=== PATIENT | male | born 1930 | race Caucasian/White ===

== ENCOUNTER 2018-06-15 13:55 | Emergency (ER) | payer MEDICARE, BC ==
[~2018-06-15] VITALS: Ht 190.5 cm; Wt 83.9 kg
[2018-06-15 14:17] VITALS: BP 189/84
--- NOTE | 2018-06-15 14:41 | PHYS DOC ---
Past Medical History Past Medical History: UTI Additional Past Medical Histor: bph, Past Surgical History: Other Additional Past Surgical Histo: aaa repair Alcohol Use: None Drug Use: None Adult General Chief Complaint Chief Complaint: BLOOD IN URINE [facility] HPI Patient is a 88 year old male who presents with lower abdominal pain, urethral pain with urination, and more than usual urinary retention since this morning. Patient states he cannot fully empty his bladder that he does have a history of enlarged prostate of which he takes Flomax for. Patient states she's had this problem before and had to have a leg bag placed. Patient states he cannot get hold of his primary care doctor. Patient rates his pain 8 out of 10 but states when he urinates is very painful. Patient denies nausea, vomiting, chest pain, shortness of air, diarrhea, constipation, fever. Review of Systems Review of Systems Constitutional: Denies fever or chills [] Eyes: Denies change in visual acuity, redness, or eye pain [] HENT: Denies nasal congestion or sore throat [] Respiratory: Denies cough or shortness of breath [] Cardiovascular: No additional information not addressed in HPI [] GI: Denies abdominal pain, nausea, vomiting, bloody stools or diarrhea [] : Denies dysuria or hematuria [] Musculoskeletal: Denies back pain or joint pain [] Integument: Denies rash or skin lesions [] Neurologic: Denies headache, focal weakness or sensory changes [] Endocrine: Denies polyuria or polydipsia [] All other systems were reviewed and found to be within normal limits, except as documented in this note. Current Medications Current Medications Current Medications Medications (Trade) Dose Ordered Sig/[facility] Start Time Stop Time Status Last Admin Dose Admin Ceftriaxone Sodium (Rocephin) 1 gm 1X ONCE 06/15/18 18:00 06/15/18 18:01 DC Allergies Allergies Allergies Coded Allergies Type Severity Reaction Last Updated Verified No Known Drug Allergies 05/17/15 No Physical Exam Physical Exam Constitutional: Well developed, well nourished, no acute distress, non-toxic appearance. [] HENT: Normocephalic, atraumatic, bilateral external ears normal, oropharynx moist, no oral exudates, nose normal. [] Eyes: PERRLA, EOMI, conjunctiva normal, no discharge. [] Neck: Normal range of motion, no tenderness, supple, no stridor. [] Cardiovascular:Heart rate regular rhythm, no murmur [] Lungs & Thorax: Bilateral upper breath sounds inspiratory wheezes to auscultation, lower lobes diminished. [] Abdomen: Bowel sounds normal, soft, no tenderness, no masses, no pulsatile masses. [] Skin: Warm, dry, no erythema, no rash. [] Back: No tenderness, no CVA tenderness. [] Extremities: No tenderness, no cyanosis, no clubbing, ROM intact, no edema. [] Neurologic: Alert and oriented X 3, normal motor function, normal sensory function, no focal deficits noted. [] Psychologic: Affect normal, judgement normal, mood normal. [] Current Patient Data Vital Signs Vital Signs Date Time Temp Pulse Resp B/P (MAP) Pulse Ox O2 Delivery O2 Flow Rate FiO2 06/15/18 14:17 97.7 62 20 189/84 (119) 97 Room Air 97.7 Lab Values Laboratory Tests Test 06/15/18 15:00 06/15/18 15:35 Urine Color Brown Urine Clarity Turbid Urine pH Urine Specific [place] Urine Protein mg/dL (NEG-TRACE) Urine Glucose (UA) mg/dL (NEG) Urine Ketones (Stick) mg/dL (NEG) Urine Blood (NEG) Urine Nitrite (NEG) Urine Bilirubin (NEG) Urine Urobilinogen Dipstick mg/dL (0.2 mg/dL) Urine Leukocyte Esterase (NEG) Urine RBC Tntc /HPF (0-2) Urine WBC Tntc /HPF (0-4) Urine Bacteria Many /HPF (0-FEW) White Blood Count 6.8 x10^3/uL (4.0-11.0) Red Blood Count 4.26 x10^6/uL (4.30-5.70) L Hemoglobin 13.7 g/dL (13.0-17.5) Hematocrit 42.4 % (39.0-53.0) Mean Corpuscular Volume 100 fL (79-100) Mean Corpuscular Hemoglobin 32 pg (25-35) Mean Corpuscular Hemoglobin Concent 32 g/dL (31-37) Red Cell Distribution Width 14.7 % (11.5-14.5) H Platelet Count 174 x10^3/uL (140-400) Neutrophils (%) (Auto) 72 % (31-73) Lymphocytes (%) (Auto) 17 % (24-48) L Monocytes (%) (Auto) 9 % (0-9) Eosinophils (%) (Auto) 2 % (0-3) Basophils (%) (Auto) 0 % (0-3) Neutrophils # (Auto) 4.9 x10^3uL (1.8-7.7) Lymphocytes # (Auto) 1.2 x10^3/uL (1.0-4.8) Monocytes # (Auto) 0.6 x10^3/uL (0.0-1.1) Eosinophils # (Auto) 0.1 x10^3/uL (0.0-0.7) Basophils # (Auto) 0.0 x10^3/uL (0.0-0.2) Sodium Level 143 mmol/L (136-145) Potassium Level 4.0 mmol/L (3.5-5.1) Chloride Level 105 mmol/L (98-107) Carbon Dioxide Level 33 mmol/L (21-32) H Anion Gap 5 (6-14) L Blood Urea Nitrogen 17 mg/dL (8-26) Creatinine 1.0 mg/dL (0.7-1.3) Estimated GFR (Cockcroft-Gault) 70.8 BUN/Creatinine Ratio 17 (6-20) Glucose Level 98 mg/dL (70-99) Calcium Level 8.8 mg/dL (8.5-10.1) Total Bilirubin 0.7 mg/dL (0.2-1.0) Aspartate Amino Transferase (AST) 19 U/L (15-37) Alanine Aminotransferase (ALT) 22 U/L (16-63) Alkaline Phosphatase 76 U/L (46-116) Total Protein 7.8 g/dL (6.4-8.2) Albumin 3.4 g/dL (3.4-5.0) Albumin/Globulin Ratio 0.8 (1.0-1.7) L Laboratory Tests 06/15/18 15:35 Laboratory Tests 06/15/18 15:35 EKG EKG [] Radiology/Procedures Radiology/Procedures [] Impressions: [facility] [address] [place], [place] [id number] IMAGING REPORT Signed PATIENT: MEL WILLINGHAM ACCOUNT: [id number] : 1930 LOCATION: ER AGE: 88 SEX: M EXAM STATUS: REG ER ORD. PHYSICIAN: ADAM THOMAS APRN REASON: urinary retention, lower abd pain, bloody urine PROCEDURE: CT ABDOMEN PELVIS WO CONTRAST CT study of the abdomen and pelvis without contrast Clinical indications: Urinary retention. Lower abdominal pain. Bloody urine. TECHNIQUE: Noncontrast helical CT scanning of abdomen and pelvis was performed. Without contrast, the sensitivity to detect organ pathology and GI tract pathology is decreased. PQRS compliance Statement One or more of the following individualized dose reduction techniques were utilized for this study: 1. Automated exposure control 2. Adjustment of the mA and/or kV according to patient size 3. Use of iterative reconstruction technique FINDINGS: The liver and spleen and pancreas are homogeneous in appearance on this noncontrast study. There are some small radiodensities within the gallbladder which could represent sludge more small gallstones. No extrahepatic biliary ductal dilatation is seen. No adrenal mass is evident. There is moderate right-sided hydronephrosis and hydroureter. No stone is evident. The right ureter is dilated down to the UVJ. There is wall thickening of the urinary bladder diffusely. The prostate gland is enlarged with more nodularity on the right side. Prostate gland measures 8.2 cm transversely. Roberts catheter is seen within the lumen of the urinary bladder. No hydronephrosis or hydroureter is seen within the left side. Endoluminal aortic iliac stent graft is seen. The [place] abdominal aorta just superior to the graft measures 3.8 cm in greatest caliber. The [place] abdominal aorta around the graft appears decompressed. No bulky abdominal or pelvic lymphadenopathy is evident. There are no CT findings of appendicitis. The terminal ileum is unremarkable. No obstructive bowel pattern is evident. No free intraperitoneal air or free fluid or mesenteric edema is seen. No lung base consolidation is evident. 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 IMPRESSION: Moderate right-sided hydronephrosis and hydroureter all way down to the UVJ. No ureteral stone is evident. This may be secondary to obstruction from soft tissue inflammation or neoplasia at the UVJ. There is significant circumferential wall thickening of the urinary bladder which could be secondary to cystitis or chronic muscle hypertrophy secondary to chronic bladder neck obstruction. The prostate gland is significantly enlarged. There is more nodularity on the right side of the prostate gland. Prostate malignancy as a cause for obstruction is a possibility. Mild biliary sludge versus small gallstones. 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 Electronically signed by: Toño Lind MD (06/15/2018 3:58 PM) [facility] DICTATED and SIGNED BY: TOÑO LIND MD DATE: 06/15/18 1558 Course & Med Decision Making Course & Med Decision Making Patient is a 88 year old male who presents with lower abdominal pain, urethral pain with urination, and more than usual urinary retention since this morning. Patient states he cannot fully empty his bladder that he does have a history of enlarged prostate of which he takes Flomax for. Patient states he's had this problem before and had to have a leg bag placed. Patient states he cannot get hold of his primary care doctor. Patient rates his pain 8 out of 10 but states when he urinates is very painful. Patient denies nausea, vomiting, chest pain, shortness of air, diarrhea, constipation, fever. Alert and oriented. Speaks in full clear sentences. Patient is hard of hearing. Lungs have respiratory wheezes and lower lung lobes are diminished. Patient is a smoker. Patient denies any cough or shortness of air or recent illness. Patient is ambulatory with a steady gait. Skin is pink warm and dry. Mucous membranes are moist. No extremity edema. Abdomen is soft and nontender. Patient is asking for a catheter with a leg bag. Patient is asked to try to give a urine specimen the ED and he is unable to. Patient states he does feel uncomfortable like there is fullness in his bladder. Patient will be bladder scan. Leg bag roberts placed with 9ml urine return. Moderate amount of bloody urine is drained and the bag is irrigated with a small clot. Urine is infected. CT ABD PELV shows Moderate right-sided hydronephrosis and hydroureter all way down to the UVJ. No ureteral stone is evident. This may be secondary to obstruction from soft tissue inflammation or neoplasia at the UVJ. There is significant circumferential wall thickening of the urinary bladder which could be secondary to cystitis or chronic muscle hypertrophy secondary to chronic bladder neck obstruction. The prostate gland is significantly enlarged. There is more nodularity on the right side of the prostate gland. Prostate malignancy as a cause for obstruction is a possibility. Mild biliary sludge versus small gallstones. 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 I have told the patient I would like him to stay inpatient and have IV antibiotics and have urology see him. Patient refuses to be admitted and states he will take antibiotics and go home on Roberts leg back and follow up with Urology. I have spoken to Dr Powell with urology who states that the patient can go home on a catheter and Cipro. Patient to call office in 2 days for scheduling of follow up and to change antibiotics if needed. Patient is also given 1gm of Rocephin in the ED. Dragon Disclaimer Dragon Disclaimer This electronic medical record was generated, in whole or in part, using a voice recognition dictation system. Departure Departure Impression: Primary Impression: Cystitis Additional Impression: Urinary tract infection Disposition: HOME, SELF-CARE Condition: STABLE Referrals: NO PCP (PCP) CLAUDY HUSTON MD Patient Instructions: Urinary Tract Infection Additional Instructions: FOLLOW UP WITH UROLOGY SOON POSSIBLE. TAKE ANTIBIOTICS PRESCRIBED. Scripts Ciprofloxacin Hcl (CIPRO) 500 Mg Tablet 1 TAB PO BID for 10 Days, #20 TAB Prov: ADAM THOMAS APRN 06/15/18 Problem Qualifiers Additional Impression: Urinary tract infection Urinary tract infection type: acute cystitis Hematuria presence: with hematuria Qualified Codes: N30.01 - Acute cystitis with hematuria ADAM THOMAS APRN Jun 15, 2018 14:41
[2018-06-15 15:11] LABS: CLARITY,URINE TURBID
[2018-06-15 15:21] LABS: COLOR,URINE BROWN; RBC,URINE TNTC /HPF (0-2)
[2018-06-15 15:23] LABS: BACTERIA,URINE MANY /HPF (0-FEW); WBC,URINE TNTC /HPF (0-4)
[2018-06-15 15:47] LABS: BASO % 0 % (0-3); EOS # 0.1 x10^3/uL (0.0-0.7); EOS % 2 % (0-3); HEMATOCRIT 42.4 % (39.0-53.0); HEMOGLOBIN 13.7 g/dL (13.0-17.5); LYMPH # 1.2 x10^3/uL (1.0-4.8); LYMPH % 17 % (24-48); MEAN CORPUSCULAR HEMOGLOBIN 32 pg (25-35); MEAN CORPUSCULAR HGB CONC 32 g/dL (31-37); MEAN CORPUSCULAR VOLUME 100 fL (79-100); MONO # 0.6 x10^3/uL (0.0-1.1); MONO % 9 % (0-9); NEUT # 4.9 x10^3uL (1.8-7.7); NEUT % 72 % (31-73); PLATELET COUNT 174 x10^3/uL (140-400); RED BLOOD COUNT 4.26 x10^6/uL (4.30-5.70); RED CELL DISTRIBUTION WIDTH 14.7 % (11.5-14.5); WHITE BLOOD COUNT 6.8 x10^3/uL (4.0-11.0)
[2018-06-15 16:00] LABS: CALCIUM 8.8 mg/dL (8.5-10.1); GFR 70.8
--- NOTE | 2018-06-15 16:01 | RAD ---
CT study of the abdomen and pelvis without contrast Clinical indications: Urinary retention. Lower abdominal pain. Bloody urine. TECHNIQUE: Noncontrast helical CT scanning of abdomen and pelvis was performed. Without contrast, the sensitivity to detect organ pathology and GI tract pathology is decreased. PQRS compliance Statement One or more of the following individualized dose reduction techniques were utilized for this study: 1. Automated exposure control 2. Adjustment of the mA and/or kV according to patient size 3. Use of iterative reconstruction technique FINDINGS: The liver and spleen and pancreas are homogeneous in appearance on this noncontrast study. There are some small radiodensities within the gallbladder which could represent sludge more small gallstones. No extrahepatic biliary ductal dilatation is seen. No adrenal mass is evident. There is moderate right-sided hydronephrosis and hydroureter. No stone is evident. The right ureter is dilated down to the UVJ. There is wall thickening of the urinary bladder diffusely. The prostate gland is enlarged with more nodularity on the right side. Prostate gland measures 8.2 cm transversely. Simpson catheter is seen within the lumen of the urinary bladder. No hydronephrosis or hydroureter is seen within the left side. Endoluminal aortic iliac stent graft is seen. [place] abdominal aorta just superior to the graft measures 3.8 cm in greatest caliber. The [place] abdominal aorta around the graft appears decompressed. No bulky abdominal or pelvic lymphadenopathy is evident. There are no CT findings of appendicitis. The terminal ileum is unremarkable. No obstructive bowel pattern is evident. No free intraperitoneal air or free fluid or mesenteric edema is seen. No lung base consolidation is evident. 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 IMPRESSION: Moderate right-sided hydronephrosis and hydroureter all way down to the UVJ. No ureteral stone is evident. This may be secondary to obstruction from soft tissue inflammation or neoplasia at the UVJ. There is significant circumferential wall thickening of the urinary bladder which could be secondary to cystitis or chronic muscle hypertrophy secondary to chronic bladder neck obstruction. The prostate gland is significantly enlarged. There is more nodularity on the right side of the prostate gland. Prostate malignancy as a cause for obstruction is a possibility. Mild biliary sludge versus small gallstones. 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 Electronically signed by: Dontae Lind MD (06/15/2018 3:58 PM) [facility]
[2018-06-15 16:07] LABS: ALBUMIN 3.4 g/dL (3.4-5.0); ALBUMIN/GLOBULIN RATIO 0.8 (1.0-1.7); TOTAL BILIRUBIN 0.7 mg/dL (0.2-1.0); TOTAL PROTEIN 7.8 g/dL (6.4-8.2)
[2018-06-15] MEDS ORDERED: cefTRIAXone IV Push 1 GM VIAL. IVP ONE (18:00)
[2018-06-15] MEDS ORDERED: CIPR500T94 PO (18:23)
== END 2018-06-15 18:40 | disposition home or self-care (01) ==
LOC: ER 13:55
DX: N30.01 Acute cystitis with hematuria (principal); M47.816 Spondylosis without myelopathy or radiculopathy, lumbar region
CPT/HCPCS: 36415; 51702; 74176; 80053; 81001; 85025; 87086; 99284; J0696

== ENCOUNTER 2018-08-16 19:15 | Inpatient (IN) | payer MEDICARE, BC ==
[~2018-08-16] VITALS: Ht 190.5 cm; Wt 73.5 kg
[~2018-08-16 19:15] MED LIST: CIPR500T94 PO
--- NOTE | 2018-08-16 20:24 | PHYS DOC ---
Past Medical History Past Medical History: UTI Additional Past Medical Histor: bph, (CLAUDY FOSTER APRN) Past Surgical History: Other Additional Past Surgical Histo: aaa repair (CLAUDY FOSTER APRN) Alcohol Use: None Drug Use: None (CLAUDY FOSTER APRN) Adult General Chief Complaint Chief Complaint: BLOOD IN URINE [facility] HPI Patient is a 88 year old [male] who presents with [inability to urinate with blood clots in his urine today. Patient reports he has had prostate problems for many years has been many natural medications in the past had been on 1 that was very successful but had a formulation change and no longer is available. Reports he has taken Flomax in the past most recently as 2-3 weeks ago from his primary care reports he had never had any success with that and he stopped taking it. Reports he has been offered surgery many times and he refuses any prostate surgery he is aware he has an inflamed prostate. He is very knowled geable in prostate issues and has done a lot of research and has tried many different natural remedies with occasional success finding products. Reports he just feels like he needs to urinate because he has not been able to all day. Reports he has had a catheter placed to go home in the past but has not had this for quite a period (CLAUDY FOSTER APRN) Review of Systems Review of Systems Constitutional: Denies fever or chills [] Eyes: Denies change in visual acuity, redness, or eye pain [] HENT: Denies nasal congestion or sore throat [] Respiratory: Denies cough or shortness of breath any different than his normal shortness of breath [] Cardiovascular: No additional information not addressed in HPI [] GI: Denies abdominal pain, nausea, vomiting, bloody stools or diarrhea [] : Reports some hematuria also reports he has been unable to urinate today[] Musculoskeletal: Denies back pain or joint pain [] Integument: Denies rash or skin lesions [] Neurologic: Denies headache, focal weakness or sensory changes [] Endocrine: Denies polyuria or polydipsia [] All other systems were reviewed and found to be within normal limits, except as documented in this note. (CLAUDY FOSTER APRN) Current Medications Current Medications Current Medications Medications (Trade) Dose Ordered Sig/[facility] Start Time Stop Time Status Last Admin Dose Admin Albuterol/ Ipratropium (Duoneb) 3 ml 1X ONCE 08/16/18 21:45 08/16/18 21:46 DC 08/16/18 21:48 3 ML (RAMAN PALOMARES DO) Allergies Allergies Allergies Coded Allergies Type Severity Reaction Last Updated Verified No Known Drug Allergies 05/17/15 No (RAMAN PALOMARES DO) Physical Exam Physical Exam Constitutional: Well developed, well nourished, no acute distress, non-toxic appearance. [] HENT: Normocephalic, atraumatic, bilateral external ears normal, oropharynx moist, no oral exudates, nose normal. [] Eyes: PERRLA, EOMI, conjunctiva normal, no discharge. [] Neck: Normal range of motion, no tenderness, supple, no stridor. [] Cardiovascular:Heart rate regular rhythm, no murmur [] Lungs & Thorax: Bilateral breath sounds with faint wheezing. Patient speaking multiple sentences without noted air hunger. He is on nasal cannula at home all the time. [] Abdomen: Bowel sounds normal, soft, minimal suprapubic tenderness, no masses, no pulsatile masses. [] Skin: Warm, dry, no erythema, no rash. [] Back: No tenderness, no CVA tenderness. [] Extremities: No tenderness, no cyanosis, no clubbing, ROM intact, no edema. [] Neurologic: Alert and oriented X 3, normal motor function, normal sensory function, no focal deficits noted. [] . [] (CLAUDY FOSTER APRN) Current Patient Data Vital Signs Vital Signs Date Time Temp Pulse Resp B/P (MAP) Pulse Ox O2 Delivery O2 Flow Rate FiO2 08/16/18 23:00 72 18 145/72 (96) 94 Nasal Cannula 2.0 08/16/18 19:35 97.9 97.9 (RAMAN PALOMARES DO) Lab Values Laboratory Tests Test 08/16/18 19:30 08/16/18 20:56 White Blood Count 7.7 x10^3/uL (4.0-11.0) Red Blood Count 4.32 x10^6/uL (4.30-5.70) Hemoglobin 13.8 g/dL (13.0-17.5) Hematocrit 42.5 % (39.0-53.0) Mean Corpuscular Volume 98 fL (79-100) Mean Corpuscular Hemoglobin 32 pg (25-35) Mean Corpuscular Hemoglobin Concent 32 g/dL (31-37) Red Cell Distribution Width 14.4 % (11.5-14.5) Platelet Count 185 x10^3/uL (140-400) Neutrophils (%) (Auto) 68 % (31-73) Lymphocytes (%) (Auto) 22 % (24-48) L Monocytes (%) (Auto) 7 % (0-9) Eosinophils (%) (Auto) 3 % (0-3) Basophils (%) (Auto) 1 % (0-3) Neutrophils # (Auto) 5.2 x10^3uL (1.8-7.7) Lymphocytes # (Auto) 1.7 x10^3/uL (1.0-4.8) Monocytes # (Auto) 0.5 x10^3/uL (0.0-1.1) Eosinophils # (Auto) 0.2 x10^3/uL (0.0-0.7) Basophils # (Auto) 0.0 x10^3/uL (0.0-0.2) Prothrombin Time 13.3 SEC (11.7-14.0) Prothrombin Time INR 1.0 (0.8-1.1) PTT 32 SEC (24-38) Sodium Level 141 mmol/L (136-145) Potassium Level 3.9 mmol/L (3.5-5.1) Chloride Level 102 mmol/L (98-107) Carbon Dioxide Level 31 mmol/L (21-32) Anion Gap 8 (6-14) Blood Urea Nitrogen 23 mg/dL (8-26) Creatinine 1.2 mg/dL (0.7-1.3) Estimated GFR (Cockcroft-Gault) 57.4 Glucose Level 100 mg/dL (70-99) H Calcium Level 9.2 mg/dL (8.5-10.1) Urine Collection Type U cath Urine Color Red Urine Clarity Turbid Urine pH 6.0 Urine Specific [place] 1.020 Urine Protein 100 mg/dL (NEG-TRACE) Urine Glucose (UA) Negative mg/dL (NEG) Urine Ketones (Stick) Trace mg/dL (NEG) Urine Blood Large (NEG) Urine Nitrite Positive (NEG) Urine Bilirubin Moderate (NEG) Urine Urobilinogen Dipstick 1.0 mg/dL (0.2 mg/dL) Urine Leukocyte Esterase Large (NEG) Urine RBC Tntc /HPF (0-2) Urine WBC 20-40 /HPF (0-4) Urine Squamous Epithelial Cells Occ /LPF Urine Bacteria Many /HPF (0-FEW) Urine Mucus Mod /LPF Laboratory Tests 08/16/18 19:30 Laboratory Tests 08/16/18 19:30 (RAMAN PALOMARES DO) Lab Values Laboratory Tests Test 08/16/18 19:30 08/16/18 20:56 White Blood Count 7.7 x10^3/uL (4.0-11.0) Red Blood Count 4.32 x10^6/uL (4.30-5.70) Hemoglobin 13.8 g/dL (13.0-17.5) Hematocrit 42.5 % (39.0-53.0) Mean Corpuscular Volume 98 fL (79-100) Mean Corpuscular Hemoglobin 32 pg (25-35) Mean Corpuscular Hemoglobin Concent 32 g/dL (31-37) Red Cell Distribution Width 14.4 % (11.5-14.5) Platelet Count 185 x10^3/uL (140-400) Neutrophils (%) (Auto) 68 % (31-73) Lymphocytes (%) (Auto) 22 % (24-48) L Monocytes (%) (Auto) 7 % (0-9) Eosinophils (%) (Auto) 3 % (0-3) Basophils (%) (Auto) 1 % (0-3) Neutrophils # (Auto) 5.2 x10^3uL (1.8-7.7) Lymphocytes # (Auto) 1.7 x10^3/uL (1.0-4.8) Monocytes # (Auto) 0.5 x10^3/uL (0.0-1.1) Eosinophils # (Auto) 0.2 x10^3/uL (0.0-0.7) Basophils # (Auto) 0.0 x10^3/uL (0.0-0.2) Prothrombin Time 13.3 SEC (11.7-14.0) Prothrombin Time INR 1.0 (0.8-1.1) PTT 32 SEC (24-38) Sodium Level 141 mmol/L (136-145) Potassium Level 3.9 mmol/L (3.5-5.1) Chloride Level 102 mmol/L (98-107) Carbon Dioxide Level 31 mmol/L (21-32) Anion Gap 8 (6-14) Blood Urea Nitrogen 23 mg/dL (8-26) Creatinine 1.2 mg/dL (0.7-1.3) Estimated GFR (Cockcroft-Gault) 57.4 Glucose Level 100 mg/dL (70-99) H Calcium Level 9.2 mg/dL (8.5-10.1) Urine Collection Type U cath Urine Color Red Urine Clarity Turbid Urine pH 6.0 Urine Specific [place] 1.020 Urine Protein 100 mg/dL (NEG-TRACE) Urine Glucose (UA) Negative mg/dL (NEG) Urine Ketones (Stick) Trace mg/dL (NEG) Urine Blood Large (NEG) Urine Nitrite Positive (NEG) Urine Bilirubin Moderate (NEG) Urine Urobilinogen Dipstick 1.0 mg/dL (0.2 mg/dL) Urine Leukocyte Esterase Large (NEG) Urine RBC Tntc /HPF (0-2) Urine WBC 20-40 /HPF (0-4) Urine Squamous Epithelial Cells Occ /LPF Urine Bacteria Many /HPF (0-FEW) Urine Mucus Mod /LPF Laboratory Tests 08/16/18 19:30 Laboratory Tests 08/16/18 19:30 (CLAUDY FOSTER APRN) EKG EKG [] (CLAUDY FOSTER APRN) Radiology/Procedures Radiology/Procedures IMPRESSION: 1. Abdominal aortic aneurysm. 2. Some limitation from respiratory motion artifact. 3. Artifact versus small gallstones the gallbladder. 4. 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 5. Enlarged prostate. 6. Distended bladder with thickening of the bladder wall and mild inflammation surrounding the bladder, possible infection. [] (CLAUDY FOSTER APRN) Course & Med Decision Making Course & Med Decision Making Pertinent Labs and Imaging studies reviewed. (See chart for details) On catheter placement noted brownish urine catheter. Patient reports he has had a lot of relief of his discomfort does agree to inpatient monitoring tonight to evaluate his urinary retention and urinary symptoms. Will continue to get breathing treatments as noted. Patient states he feels fine staying tonight.[] (CLAUDY FOSTER APRN) Dragon Disclaimer Dragon Disclaimer This electronic medical record was generated, in whole or in part, using a voice recognition dictation system. (CLAUDY FOSTER APRN) Departure Departure Impression: Primary Impression: Hematuria Additional Impression: Urinary tract infection Disposition: ADMITTED INPATIENT Admitting Physician: Other (CLAUDY FOSTER APRN) Condition: GOOD Referrals: NO PCP (PCP) Attending Signature Attending Signature I have reviewed the PA/MANAGER HOME's note and plan of care. I was available for consultation as needed during the patient's visit in the emergency department. I agree with the clinical impression, plan, and disposition. (RAMAN PALOMARES DO) Problem Qualifiers CLAUDY FOSTER APRN August 16, 2018 20:24 RAMAN APLOMARES DO August 17, 2018 05:31
[2018-08-16 21:04] LABS: BILIRUBIN,URINE MODERATE (NEG); CLARITY,URINE TURBID; COLOR,URINE RED; NITRITE,URINE POSITIVE (NEG); PROTEIN,URINE 100 mg/dL (NEG-TRACE)
[2018-08-16 21:08] LABS: RBC,URINE TNTC /HPF (0-2)
[2018-08-16 21:10] LABS: BACTERIA,URINE MANY /HPF (0-FEW); SQUAMOUS EPITHELIAL CELL,UR OCC /LPF; WBC,URINE 20-40 /HPF (0-4)
[2018-08-16] MEDS ORDERED: IPRATRPIUM/ALBUTEROL 0.5/2.5MG 3 ML NEBU. NEB ONE (21:45)
[2018-08-16 22:09] LABS: BASO % 1 % (0-3); EOS # 0.2 x10^3/uL (0.0-0.7); EOS % 3 % (0-3); HEMATOCRIT 42.5 % (39.0-53.0); HEMOGLOBIN 13.8 g/dL (13.0-17.5); LYMPH # 1.7 x10^3/uL (1.0-4.8); LYMPH % 22 % (24-48); MEAN CORPUSCULAR HEMOGLOBIN 32 pg (25-35); MEAN CORPUSCULAR HGB CONC 32 g/dL (31-37); MEAN CORPUSCULAR VOLUME 98 fL (79-100); MONO # 0.5 x10^3/uL (0.0-1.1); MONO % 7 % (0-9); NEUT # 5.2 x10^3uL (1.8-7.7); NEUT % 68 % (31-73); PLATELET COUNT 185 x10^3/uL (140-400); RED BLOOD COUNT 4.32 x10^6/uL (4.30-5.70); RED CELL DISTRIBUTION WIDTH 14.4 % (11.5-14.5); WHITE BLOOD COUNT 7.7 x10^3/uL (4.0-11.0)
[2018-08-16 22:16] LABS: CALCIUM 9.2 mg/dL (8.5-10.1); CREATININE 1.2 mg/dL (0.7-1.3); GFR 57.4; POTASSIUM 3.9 mmol/L (3.5-5.1)
[2018-08-16] MEDS ORDERED: cefTRIAXone IV Push 1 GM VIAL. IVP ONE (23:15)
[2018-08-16] MEDS ORDERED: IV NORMAL SALINE 1000ML BAG 1,000 ML IV ONE (23:15)
[2018-08-16 23:29] LABS: PROTHROMBIN TIME PATIENT 13.3 SEC (11.7-14.0)
--- NOTE | 2018-08-16 23:52 | RAD ---
CT abdomen and pelvis without contrast. HISTORY: Hematuria CT scan the abdomen pelvis was done without contrast. There is mild respiratory motion artifact. 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 There is mild scarring or atelectasis in the right lower lobe. Thoracic aorta is mildly dilated measuring 3.68 cm. A liver lesion is not identified. There is either artifact or small gallstones in the gallbladder in the posterior gallbladder. There are granulomatous calcifications in the spleen. Adrenal glands are normal. Patient's had a previous aortic aneurysm surgery. There is an aneurysm of the aorta above the previous surgery at the level the renal arteries and just below the renal arteries the aorta measures 3.7 x 3.9 cm. There is no renal mass or hydronephrosis. There is no bowel obstruction. There is a anterior abdominal wall hernia in the upper abdomen above the umbilicus. Appendix is normal. Prostate is enlarged. There is thickening of the bladder wall. Bladder is mildly distended. There is a bubble of air in the bladder possible infection or instrumentation. I do not see evidence of a diverticulitis or significant diverticulosis. 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 There is degenerative change in the lumbar spine without a fracture. IMPRESSION: 1. Abdominal aortic aneurysm. 2. Some limitation from respiratory motion artifact. 3. Artifact versus small gallstones the gallbladder. 4. 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 5. Enlarged prostate. 6. Distended bladder with thickening of the bladder wall and mild inflammation surrounding the bladder, possible infection. PQRS Compliance Statement: One or more of the following individualized dose reduction techniques were utilized for this examination: 1. Automated exposure control 2. Adjustment of the mA and/or kV according to patient size 3. Use of iterative reconstruction technique Electronically signed by: Ander Larson MD (08/16/2018 11:49 PM) [id number]
--- NOTE | 2018-08-17 00:20 | NUR ---
The patient, MEL WILLINGHAM, 88 y/o, M was admitted by HANANE GUO MD. Pt. arrived on unit by bed at 0020 from ED with 2L NC. Pt. was given written information regarding hospital policies and unit procedures. Pt.'s vital signs were stable. Assessment done at this time. Admission questions answered by pt. Call light within reach, bed low. Will continue to monitor.
[2018-08-17 01:00] VITALS: BP 152/49
[2018-08-17] MEDS ORDERED: ACETAMINOPHEN 325 MG TABLET. PO PRN (02:00)
--- NOTE | 2018-08-17 02:47 | NUR ---
Pt. arrived on unit with 20G coude catheter but pt. unhooked catheter from bag while he went to bathroom and catheter came out of pt. Pt. did not feel any pain and he stated "nurse probably forgot to blow the bubble up." This nurse inserted new 16F coude catheter. Addendum: 08/17/18 at 0308 by SUMAYA ELIAS RN Amended: Links added.
[2018-08-17 03:00] VITALS: BP 103/49
[2018-08-17 07:00] VITALS: BP 93/60
[2018-08-17] MEDS ORDERED: IPRATRPIUM/ALBUTEROL 0.5/2.5MG 3 ML NEBU. NEB SCH ×2 (08:00→16:00)
--- NOTE | 2018-08-17 08:59 | NUR ---
SW following for discharge planning. Discussed with RN, pt is from home with , very independent. RN advised no SW needs at this time. SW will continue to follow.
--- NOTE | 2018-08-17 09:31 | PDOC2 ---
MARCIALOUMOU Murray Milly VILLARREAL 08/17/18 0931: UROLOGY CONSULT Date of Consult Date of Consult DATE: 08/17/18 TIME: 09:26 Identification/Chief Complaint Chief Complaint Gross hematuria/urinary retention Source Source: Chart review, Patient History of Present Illness Reason for Visit: This pleasant 88 year old male presented through the ER last night for complaints of urinary retention and hematuria. He sees Dr. Castillo and had a cystoscopy a couple of months ago and is due to see him again in September. He manages his urinary retention with self cath and was trying to do this last night, when the blood started up. However, every time he inserted a I and O catheter, it clogged up with a blood clot and would not drain. This is when he decided to come into [facility]. They inserted an indwelling Roberts catheter and he thinks they got around 1000 ml out but he is not sure. He denies having any fever, or abd/flank pain during this incident. This morning his urine is clear and he denies any pain. He is supposed to cath four times per day but admittedly does not do this all the time, he only self caths when he "cannot urinate on my own." He would like to go home as soon as possible. Past Medical History Renal/: Benign prostatic enlarg. (Pt of Dr. Dubon) Current Medications Current Medications Current Medications Acetaminophen (Tylenol) 650 mg PRN Q6HRS PRN PO headache; Start 08/17/18 at 02:00 Albuterol/ Ipratropium (Duoneb) 3 ml 1X ONCE NEB Last administered on 08/16/18at 21:48; Start 08/16/18 at 21:45; Stop 08/16/18 at 21:46; Status DC Albuterol/ Ipratropium (Duoneb) 3 ml RTQID NEB ; Start 08/17/18 at 08:00 Ceftriaxone Sodium (Rocephin) 1 gm 1X ONCE IVP Last administered on 08/16/18at 23:38; Start 08/16/18 at 23:15; Stop 08/16/18 at 23:16; Status DC Sodium Chloride 1,000 ml @ 1,000 mls/hr 1X ONCE IV Last administered on 08/16/18at 23:38; Start 08/16/18 at 23:15; Stop 08/17/18 at 00:14; Status DC Allergies Allergies: Coded Allergies: No Known Drug Allergies (Unverified , 05/17/15) ROS Review Of Systems: CONSTITUTIONAL: No fever or chills EYES: No recent changes SKIN: No rash or itching CARDIOVASCULAR: No chest pain, syncope, palpitations, or edema RESPIRATORY: No SOB or cough GASTROINTESTINAL: No nausea, vomiting or abdominal pain NEUROLOGICAL: No headaches or weakness ENDOCRINE: No cold or heat intolerance GENITOURINARY: No urgency or frequency of urination/problems he had yesterday are resolved. MUSCULOSKELETAL: No back pain or joint pain LYMPHATICS: No enlarged lymph nodes PSYCHIATRIC: No anxiety or depression Physical Exam Physical Exam: General: Pleasant, no acute distress, well groomed Eyes: conjunctiva anicteric, eyes full range of motion ENT: moist oral mucosa, normal dentition Neck: Trachea midline, no masses Respiratory: unlabored breathing, not using accessory muscles, Abdomen: nontender, nondistended, no hepatosplenomegaly, no masses : normal phallus with Roberts in place draining clear yellow urine. Device in good working order. Skin: no rashes or skin lesions on visualized skin Psych: normal mood, affect. Alert and oriented x 3. Vitals VITALS Vital Signs Date Time Temp Pulse Resp B/P (MAP) Pulse Ox O2 Delivery O2 Flow Rate FiO2 08/17/18 07:20 Nasal Cannula 2.0 08/17/18 07:00 97.8 59 18 93/60 (71) 94 97.8 Labs Labs Laboratory Tests Test 08/16/18 19:30 08/16/18 20:56 White Blood Count 7.7 x10^3/uL (4.0-11.0) Red Blood Count 4.32 x10^6/uL (4.30-5.70) Hemoglobin 13.8 g/dL (13.0-17.5) Hematocrit 42.5 % (39.0-53.0) Mean Corpuscular Volume 98 fL (79-100) Mean Corpuscular Hemoglobin 32 pg (25-35) Mean Corpuscular Hemoglobin Concent 32 g/dL (31-37) Red Cell Distribution Width 14.4 % (11.5-14.5) Platelet Count 185 x10^3/uL (140-400) Neutrophils (%) (Auto) 68 % (31-73) Lymphocytes (%) (Auto) 22 % (24-48) Monocytes (%) (Auto) 7 % (0-9) Eosinophils (%) (Auto) 3 % (0-3) Basophils (%) (Auto) 1 % (0-3) Neutrophils # (Auto) 5.2 x10^3uL (1.8-7.7) Lymphocytes # (Auto) 1.7 x10^3/uL (1.0-4.8) Monocytes # (Auto) 0.5 x10^3/uL (0.0-1.1) Eosinophils # (Auto) 0.2 x10^3/uL (0.0-0.7) Basophils # (Auto) 0.0 x10^3/uL (0.0-0.2) Prothrombin Time 13.3 SEC (11.7-14.0) Prothromb Time International Ratio 1.0 (0.8-1.1) Activated Partial Thromboplast Time 32 SEC (24-38) Sodium Level 141 mmol/L (136-145) Potassium Level 3.9 mmol/L (3.5-5.1) Chloride Level 102 mmol/L (98-107) Carbon Dioxide Level 31 mmol/L (21-32) Anion Gap 8 (6-14) Blood Urea Nitrogen 23 mg/dL (8-26) Creatinine 1.2 mg/dL (0.7-1.3) Estimated GFR (Cockcroft-Gault) 57.4 Glucose Level 100 mg/dL (70-99) Calcium Level 9.2 mg/dL (8.5-10.1) Urine Collection Type U cath Urine Color Red Urine Clarity Turbid Urine pH 6.0 Urine Specific [place] 1.020 Urine Protein 100 mg/dL (NEG-TRACE) Urine Glucose (UA) Negative mg/dL (NEG) Urine Ketones (Stick) Trace mg/dL (NEG) Urine Blood Large (NEG) Urine Nitrite Positive (NEG) Urine Bilirubin Moderate (NEG) Urine Urobilinogen Dipstick 1.0 mg/dL (0.2 mg/dL) Urine Leukocyte Esterase Large (NEG) Urine RBC Tntc /HPF (0-2) Urine WBC 20-40 /HPF (0-4) Urine Squamous Epithelial Cells Occ /LPF Urine Bacteria Many /HPF (0-FEW) Urine Mucus Mod /LPF Laboratory Tests Test 08/16/18 19:30 08/16/18 20:56 White Blood Count 7.7 x10^3/uL (4.0-11.0) Red Blood Count 4.32 x10^6/uL (4.30-5.70) Hemoglobin 13.8 g/dL (13.0-17.5) Hematocrit 42.5 % (39.0-53.0) Mean Corpuscular Volume 98 fL (79-100) Mean Corpuscular Hemoglobin 32 pg (25-35) Mean Corpuscular Hemoglobin Concent 32 g/dL (31-37) Red Cell Distribution Width 14.4 % (11.5-14.5) Platelet Count 185 x10^3/uL (140-400) Neutrophils (%) (Auto) 68 % (31-73) Lymphocytes (%) (Auto) 22 % (24-48) Monocytes (%) (Auto) 7 % (0-9) Eosinophils (%) (Auto) 3 % (0-3) Basophils (%) (Auto) 1 % (0-3) Neutrophils # (Auto) 5.2 x10^3uL (1.8-7.7) Lymphocytes # (Auto) 1.7 x10^3/uL (1.0-4.8) Monocytes # (Auto) 0.5 x10^3/uL (0.0-1.1) Eosinophils # (Auto) 0.2 x10^3/uL (0.0-0.7) Basophils # (Auto) 0.0 x10^3/uL (0.0-0.2) Prothrombin Time 13.3 SEC (11.7-14.0) Prothromb Time International Ratio 1.0 (0.8-1.1) Activated Partial Thromboplast Time 32 SEC (24-38) Sodium Level 141 mmol/L (136-145) Potassium Level 3.9 mmol/L (3.5-5.1) Chloride Level 102 mmol/L (98-107) Carbon Dioxide Level 31 mmol/L (21-32) Anion Gap 8 (6-14) Blood Urea Nitrogen 23 mg/dL (8-26) Creatinine 1.2 mg/dL (0.7-1.3) Estimated GFR (Cockcroft-Gault) 57.4 Glucose Level 100 mg/dL (70-99) Calcium Level 9.2 mg/dL (8.5-10.1) Urine Collection Type U cath Urine Color Red Urine Clarity Turbid Urine pH 6.0 Urine Specific [place] 1.020 Urine Protein 100 mg/dL (NEG-TRACE) Urine Glucose (UA) Negative mg/dL (NEG) Urine Ketones (Stick) Trace mg/dL (NEG) Urine Blood Large (NEG) Urine Nitrite Positive (NEG) Urine Bilirubin Moderate (NEG) Urine Urobilinogen Dipstick 1.0 mg/dL (0.2 mg/dL) Urine Leukocyte Esterase Large (NEG) Urine RBC Tntc /HPF (0-2) Urine WBC 20-40 /HPF (0-4) Urine Squamous Epithelial Cells Occ /LPF Urine Bacteria Many /HPF (0-FEW) Urine Mucus Mod /LPF Images Images CT ABD/PELVIS: 1. Abdominal aortic aneurysm. 2. Some limitation from respiratory motion artifact. 3. Artifact versus small gallstones the gallbladder. 4. 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 5. Enlarged prostate. 6. Distended bladder with thickening of the bladder wall and mild inflammation surrounding the bladder, possible infection. Assessment/Plan Assessment/Plan Per our urochart/outpatient system, he is supposed to cath QID. He has been offered surgery for urinary retention in the past but he has declined on multiple occasions. Nursing to continue to maintain Roberts catheter for now. Hematuria appears to have resolved. Dr. Castillo to round on patient later today MONROE CASTILLO MD 08/17/18 5687: UROLOGY CONSULT Assessment/Plan Assessment/Plan I have seen Jerrell and discussed his problem of Urinary Retention w him. He said he would like to go home w roberts and dc it later. This is ok w me. He is likely to need to self cath and knows that. OUMOU CEJA APRN August 17, 2018 09:31 MONROE CASTILLO MD August 17, 2018 13:38
--- NOTE | 2018-08-17 09:59 | PDOC1 ---
History and Physical Date of Admission Date of Admission DATE: 08/17/18 TIME: 09:58 Identification/Chief Complaint Chief Complaint seen in er, 88 year old [male] who presents with [inability to urinate with blood clots in his urine today. Patient reports he has had prostate problems for many years has been many natural medications in the past had been on 1 that was very successful but had a formulation change and no longer is available. Reports he has taken Flomax in the past most recently as 2-3 weeks ago from his primary care reports he had never had any success with that and he stopped taking it. Reports he has been offered surgery many times and he refuses any prostate surgery he is aware he has an inflamed prostate. Past Medical History Past Medical History Past Medical History Past Medical History: UTI Additional Past Medical Histor: bph, Past Surgical History: Other Additional Past Surgical Histo: aaa repair Alcohol Use: None Drug Use: None family hx htn Pulmonary: COPD Renal/: Benign prostatic enlarg. (Pt of Dr. Dubon) Family History Family History: Hypertension Social History Smoke: <1 pack per day ALCOHOL: occassional Drugs: None Current Problem List Problem List Problems Medical Problems: (1) Urinary tract infection Status: Acute Current Medications Current Medications Current Medications Albuterol/ Ipratropium (Duoneb) 3 ml 1X ONCE NEB Last administered on 08/16/18at 21:48; Start 08/16/18 at 21:45; Stop 08/16/18 at 21:46; Status DC Ceftriaxone Sodium (Rocephin) 1 gm 1X ONCE IVP Last administered on 08/16/18at 23:38; Start 08/16/18 at 23:15; Stop 08/16/18 at 23:16; Status DC Sodium Chloride 1,000 ml @ 1,000 mls/hr 1X ONCE IV Last administered on 08/16/18at 23:38; Start 08/16/18 at 23:15; Stop 08/17/18 at 00:14; Status DC Acetaminophen (Tylenol) 650 mg PRN Q6HRS PRN PO headache; Start 08/17/18 at 02:00 Albuterol/ Ipratropium (Duoneb) 3 ml RTQID NEB ; Start 08/17/18 at 08:00 Active Scripts Active Cipro (Ciprofloxacin Hcl) 500 Mg Tablet 1 Tab PO BID 10 Days Reported No Known Medications Prior To Admisstion (Info) Each 1 Each MC 1X No Known Medications Prior To Admisstion (Info) Each 1 Each Allergies Allergies: Coded Allergies: No Known Drug Allergies (Unverified , 05/17/15) ROS Review of System Review of Systems Review of Systems Constitutional: Denies fever or chills [] Eyes: Denies change in visual acuity, redness, or eye pain [] HENT: Denies nasal congestion or sore throat [] Respiratory: Denies cough or shortness of breath any different than his normal shortness of breath [] Cardiovascular: No additional information not addressed in HPI [] GI: Denies abdominal pain, nausea, vomiting, bloody stools or diarrhea [] : Reports some hematuria also reports he has been unable to urinate today[] Musculoskeletal: Denies back pain or joint pain [] Integument: Denies rash or skin lesions [] Neurologic: Denies headache, focal weakness or sensory changes [] Endocrine: Denies polyuria or polydipsia [] 14 pt systems were reviewed and found to be within normal limits, except as documented Respiratory: No: Cough, Hemoptysis, Orthopnea, Pleuritic Pain, Shortness of breath, SOB with excertion, Sputum Changes, Stridor, Tachypnea, Wheezing, Other Cardiovascular: No Chest Pain, No Palpitations, No Orthopnea, No Paroxysmal Noc. Dyspnea, No Edema, No Lt Headedness, No Other Gastrointestinal: No Nausea, No Vomiting, No Abdominal Pain, No Diarrhea, No Constipation, No Melena, No Hematochezia, No Other Skin: No Dry Skin, No Eczema, No Hair Changes, No Lumps, No Mole Changes, No Mottling, No Nail Changes, No Pruritus, No Rash, No Skin Lesion Changes, No Other, No Acne Physical Exam Physical Exam Physical Exam Constitutional: Well developed, well nourished, no acute distress, non-toxic appearance. [] HENT: Normocephalic, atraumatic, bilateral external ears normal, oropharynx kevin st, no oral exudates, nose normal. [] Eyes: PERRLA, EOMI, conjunctiva normal, no discharge. [] Neck: Normal range of motion, no tenderness, supple, no stridor. [] Cardiovascular:Heart rate regular rhythm, no murmur [] Lungs & Thorax: Bilateral breath sounds with faint wheezing. Patient speaking multiple sentences without noted air hunger. He is on nasal cannula at home all the time. [] Abdomen: Bowel sounds normal, soft, minimal suprapubic tenderness, no masses, no pulsatile masses. [] Skin: Warm, dry, no erythema, no rash. [] Back: No tenderness, no CVA tenderness. [] Extremities: No tenderness, no cyanosis, no clubbing, ROM intact, no edema. [] Neurologic: Alert and oriented X 3, normal motor function, normal sensory function, no focal deficits noted. [] General: Alert, Oriented X3, Cooperative, No acute distress HEENT: Atraumatic, EOMI, Mucous membr. moist/pink Lungs: Normal air movement Abdomen: Soft Rectal Exam: not examined Extremities: No cyanosis Neuro: Normal speech, Cranial nerves 3-12 NL Psych/Mental Status: Mental status NL, Mood NL Vitals Vitals Vital Signs Date Time Temp Pulse Resp B/P (MAP) Pulse Ox O2 Delivery O2 Flow Rate FiO2 08/17/18 07:20 Nasal Cannula 2.0 08/17/18 07:00 97.8 59 18 93/60 (71) 94 97.8 Labs Labs Laboratory Tests Test 08/16/18 19:30 08/16/18 20:56 White Blood Count 7.7 x10^3/uL (4.0-11.0) Red Blood Count 4.32 x10^6/uL (4.30-5.70) Hemoglobin 13.8 g/dL (13.0-17.5) Hematocrit 42.5 % (39.0-53.0) Mean Corpuscular Volume 98 fL (79-100) Mean Corpuscular Hemoglobin 32 pg (25-35) Mean Corpuscular Hemoglobin Concent 32 g/dL (31-37) Red Cell Distribution Width 14.4 % (11.5-14.5) Platelet Count 185 x10^3/uL (140-400) Neutrophils (%) (Auto) 68 % (31-73) Lymphocytes (%) (Auto) 22 % (24-48) Monocytes (%) (Auto) 7 % (0-9) Eosinophils (%) (Auto) 3 % (0-3) Basophils (%) (Auto) 1 % (0-3) Neutrophils # (Auto) 5.2 x10^3uL (1.8-7.7) Lymphocytes # (Auto) 1.7 x10^3/uL (1.0-4.8) Monocytes # (Auto) 0.5 x10^3/uL (0.0-1.1) Eosinophils # (Auto) 0.2 x10^3/uL (0.0-0.7) Basophils # (Auto) 0.0 x10^3/uL (0.0-0.2) Prothrombin Time 13.3 SEC (11.7-14.0) Prothromb Time International Ratio 1.0 (0.8-1.1) Activated Partial Thromboplast Time 32 SEC (24-38) Sodium Level 141 mmol/L (136-145) Potassium Level 3.9 mmol/L (3.5-5.1) Chloride Level 102 mmol/L (98-107) Carbon Dioxide Level 31 mmol/L (21-32) Anion Gap 8 (6-14) Blood Urea Nitrogen 23 mg/dL (8-26) Creatinine 1.2 mg/dL (0.7-1.3) Estimated GFR (Cockcroft-Gault) 57.4 Glucose Level 100 mg/dL (70-99) Calcium Level 9.2 mg/dL (8.5-10.1) Urine Collection Type U cath Urine Color Red Urine Clarity Turbid Urine pH 6.0 Urine Specific [place] 1.020 Urine Protein 100 mg/dL (NEG-TRACE) Urine Glucose (UA) Negative mg/dL (NEG) Urine Ketones (Stick) Trace mg/dL (NEG) Urine Blood Large (NEG) Urine Nitrite Positive (NEG) Urine Bilirubin Moderate (NEG) Urine Urobilinogen Dipstick 1.0 mg/dL (0.2 mg/dL) Urine Leukocyte Esterase Large (NEG) Urine RBC Tntc /HPF (0-2) Urine WBC 20-40 /HPF (0-4) Urine Squamous Epithelial Cells Occ /LPF Urine Bacteria Many /HPF (0-FEW) Urine Mucus Mod /LPF Laboratory Tests Test 08/16/18 19:30 08/16/18 20:56 White Blood Count 7.7 x10^3/uL (4.0-11.0) Red Blood Count 4.32 x10^6/uL (4.30-5.70) Hemoglobin 13.8 g/dL (13.0-17.5) Hematocrit 42.5 % (39.0-53.0) Mean Corpuscular Volume 98 fL (79-100) Mean Corpuscular Hemoglobin 32 pg (25-35) Mean Corpuscular Hemoglobin Concent 32 g/dL (31-37) Red Cell Distribution Width 14.4 % (11.5-14.5) Platelet Count 185 x10^3/uL (140-400) Neutrophils (%) (Auto) 68 % (31-73) Lymphocytes (%) (Auto) 22 % (24-48) Monocytes (%) (Auto) 7 % (0-9) Eosinophils (%) (Auto) 3 % (0-3) Basophils (%) (Auto) 1 % (0-3) Neutrophils # (Auto) 5.2 x10^3uL (1.8-7.7) Lymphocytes # (Auto) 1.7 x10^3/uL (1.0-4.8) Monocytes # (Auto) 0.5 x10^3/uL (0.0-1.1) Eosinophils # (Auto) 0.2 x10^3/uL (0.0-0.7) Basophils # (Auto) 0.0 x10^3/uL (0.0-0.2) Prothrombin Time 13.3 SEC (11.7-14.0) Prothromb Time International Ratio 1.0 (0.8-1.1) Activated Partial Thromboplast Time 32 SEC (24-38) Sodium Level 141 mmol/L (136-145) Potassium Level 3.9 mmol/L (3.5-5.1) Chloride Level 102 mmol/L (98-107) Carbon Dioxide Level 31 mmol/L (21-32) Anion Gap 8 (6-14) Blood Urea Nitrogen 23 mg/dL (8-26) Creatinine 1.2 mg/dL (0.7-1.3) Estimated GFR (Cockcroft-Gault) 57.4 Glucose Level 100 mg/dL (70-99) Calcium Level 9.2 mg/dL (8.5-10.1) Urine Collection Type U cath Urine Color Red Urine Clarity Turbid Urine pH 6.0 Urine Specific [place] 1.020 Urine Protein 100 mg/dL (NEG-TRACE) Urine Glucose (UA) Negative mg/dL (NEG) Urine Ketones (Stick) Trace mg/dL (NEG) Urine Blood Large (NEG) Urine Nitrite Positive (NEG) Urine Bilirubin Moderate (NEG) Urine Urobilinogen Dipstick 1.0 mg/dL (0.2 mg/dL) Urine Leukocyte Esterase Large (NEG) Urine RBC Tntc /HPF (0-2) Urine WBC 20-40 /HPF (0-4) Urine Squamous Epithelial Cells Occ /LPF Urine Bacteria Many /HPF (0-FEW) Urine Mucus Mod /LPF Images Images PROCEDURE: CT ABDOMEN PELVIS WO CONTRAST CT abdomen and pelvis without contrast. HISTORY: Hematuria CT scan the abdomen pelvis was done without contrast. There is mild respiratory motion artifact. 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 There is mild scarring or atelectasis in the right lower lobe. Thoracic aorta is mildly dilated measuring 3.68 cm. A liver lesion is not identified. There is either artifact or small gallstones in the gallbladder in the posterior gallbladder. There are granulomatous calcifications in the spleen. Adrenal glands are normal. Patient's had a previous aortic aneurysm surgery. There is an aneurysm of the aorta above the previous surgery at the level the renal arteries and just below the renal arteries the aorta measures 3.7 x 3.9 cm. There is no renal mass or hydronephrosis. There is no bowel obstruction. There is a anterior abdominal wall hernia in the upper abdomen above the umbilicus. Appendix is normal. Prostate is enlarged. There is thickening of the bladder wall. Bladder is mildly distended. There is a bubble of air in the bladder possible infection or instrumentation. I do not see evidence of a diverticulitis or significant diverticulosis. 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 There is degenerative change in the lumbar spine without a fracture. IMPRESSION: 1. Abdominal aortic aneurysm. 2. Some limitation from respiratory motion artifact. 3. Artifact versus small gallstones the gallbladder. 4. 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 5. Enlarged prostate. 6. Distended bladder with thickening of the bladder wall and mild inflammation surrounding the bladder, possible infection. VTE Prophylaxis Ordered VTE Prophylaxis Devices: Yes VTE Pharmacological Prophylaxi: Yes Assessment/Plan Assessment/Plan Assessment 1. Distended bladder with thickening of the bladder wall and mild inflammation surrounding the bladder, possible infection. 2 . Abdominal aortic aneurysm. aneurysm of the aorta above the previous surgery at the level the renal arteries and just below the renal arteries the aorta measures 3.7 x 3.9 cm. 3. Some limitation from respiratory motion artifact. 4. Artifact versus small gallstones the gallbladder. 5. 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 6. Enlarged prostate. 7. uti 8. BRIT 9. copd without exac /Plan 1.at home cath QID. He has been offered surgery for urinary retention maintain Simpson catheter for now. Hematuria appears to have resolved 2.iv antibiotics, emperic. 3. UROLOGY CONSULT 4. duonebs qid prn SOA 5. VASCULAR SURGERY consult 6. dvt prophylaxis 7. AM LABS 53 MIN PT EXAM, CHART REVIEW, > 50% OF TIME WITH EXAM, CHART REVIEW, PT CARE COORDINATION CLAUDE RODRIGUEZ MD August 17, 2018 09:58
[2018-08-17 11:00] VITALS: BP 89/45
--- NOTE | 2018-08-17 14:54 | PDOC2 ---
CONSULT Date of Consult Date of Consult DATE: 08/17/18 TIME: 14:41 Reason for Consult Reason for Consult: Abdominal arotic aneurysm Referring Physician Referring Physician: Dr. Bailey Identification/Chief Complaint Chief Complaint Urinary retention and blood clots Source Source: Chart review, Patient History of Present Illness Reason for Visit: 88-year-old male who was admitted with urinary retention and urinary blood sheeba ts. A CT scan performed that demonstrated an abdominal aortic aneurysm measuring 3.7 x 3.9 just below the renal arteries and just above his aortic graft. Patient had abdominal aortic aneurysm repair by Dr. Abdalla in 2010. Patient states he has not had any recent abdominal pain or back pain. He is uncertain the last time he followed up with Dr. Abdalla with relationship to his aneurysm. He denies any symptoms of claudication or stroke like symptoms. 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 Past Medical History Pulmonary: COPD Renal/: Benign prostatic enlarg. (Pt of Dr. Dubon) Past Surgical History Past Surgical History Abdominal aortic aneurysm repair, open Past Surgical History: Tonsillectomy Family History Family History: Hypertension Social History <1 pack per day ALCOHOL: occassional Drugs: None Current Problem List Problem List Problems Medical Problems: (1) Urinary tract infection Status: Acute Current Medications Current Medications Current Medications Albuterol/ Ipratropium (Duoneb) 3 ml 1X ONCE NEB Last administered on 08/16/18at 21:48; Start 08/16/18 at 21:45; Stop 08/16/18 at 21:46; Status DC Ceftriaxone Sodium (Rocephin) 1 gm 1X ONCE IVP Last administered on 08/16/18at 23:38; Start 08/16/18 at 23:15; Stop 08/16/18 at 23:16; Status DC Sodium Chloride 1,000 ml @ 1,000 mls/hr 1X ONCE IV Last administered on 08/16/18at 23:38; Start 08/16/18 at 23:15; Stop 08/17/18 at 00:14; Status DC Acetaminophen (Tylenol) 650 mg PRN Q6HRS PRN PO headache; Start 08/17/18 at 02:00 Albuterol/ Ipratropium (Duoneb) 3 ml RTQID NEB ; Start 08/17/18 at 08:00; Stop 08/17/18 at 13:25; Status DC Ceftriaxone Sodium (Rocephin) 1 gm Q24H IVP ; Start 08/17/18 at 21:00 Albuterol/ Ipratropium (Duoneb) 3 ml RTQID NEB ; Start 08/17/18 at 16:00 Active Scripts Active Cipro (Ciprofloxacin Hcl) 500 Mg Tablet 1 Tab PO BID 10 Days Reported No Known Medications Prior To Admisstion (Info) Each 1 Each MC 1X No Known Medications Prior To Admisstion (Info) Each 1 Each MC Allergies Allergies: Coded Allergies: No Known Drug Allergies (Unverified , 05/17/15) ROS Review of System Constitutional: No fever, chills, fatigue or weight loss. Respiratory: Positive for occasional cough. Cardiovascular: No chest pain, palpitations or peripheral edema. Gastrointestinal: No abdominal pain, nausea, constipation or diarrhea. Genitourinary: Admitted with blood clots and urinary retention, urine now clear. Integumentary/breast: No rash, or rhinitis or skin changes. Musculoskeletal: As per HPI. Neurological: No gross deficits All other reviews systems negative except history of present illness. Physical Exam General: Alert, Oriented X3 Lungs: Normal air movement, Other (inspiratory and expiratory wheezes) Heart: Regular rate Abdomen: Normal bowel sounds, Soft, No tenderness, No masses Extremities: Other (palpable bilateral 2+ radial, 2+ femoral pulses. Unable to appreciate pedal pulses. Peal edema) Vitals VITALS Vital Signs Date Time Temp Pulse Resp B/P (MAP) Pulse Ox O2 Delivery O2 Flow Rate FiO2 08/17/18 11:00 97.9 51 18 89/45 (60) 98 Room Air 97.9 08/17/18 07:20 2.0 Labs Labs Laboratory Tests Test 08/16/18 19:30 08/16/18 20:56 White Blood Count 7.7 x10^3/uL (4.0-11.0) Red Blood Count 4.32 x10^6/uL (4.30-5.70) Hemoglobin 13.8 g/dL (13.0-17.5) Hematocrit 42.5 % (39.0-53.0) Mean Corpuscular Volume 98 fL (79-100) Mean Corpuscular Hemoglobin 32 pg (25-35) Mean Corpuscular Hemoglobin Concent 32 g/dL (31-37) Red Cell Distribution Width 14.4 % (11.5-14.5) Platelet Count 185 x10^3/uL (140-400) Neutrophils (%) (Auto) 68 % (31-73) Lymphocytes (%) (Auto) 22 % (24-48) Monocytes (%) (Auto) 7 % (0-9) Eosinophils (%) (Auto) 3 % (0-3) Basophils (%) (Auto) 1 % (0-3) Neutrophils # (Auto) 5.2 x10^3uL (1.8-7.7) Lymphocytes # (Auto) 1.7 x10^3/uL (1.0-4.8) Monocytes # (Auto) 0.5 x10^3/uL (0.0-1.1) Eosinophils # (Auto) 0.2 x10^3/uL (0.0-0.7) Basophils # (Auto) 0.0 x10^3/uL (0.0-0.2) Prothrombin Time 13.3 SEC (11.7-14.0) Prothromb Time International Ratio 1.0 (0.8-1.1) Activated Partial Thromboplast Time 32 SEC (24-38) Sodium Level 141 mmol/L (136-145) Potassium Level 3.9 mmol/L (3.5-5.1) Chloride Level 102 mmol/L (98-107) Carbon Dioxide Level 31 mmol/L (21-32) Anion Gap 8 (6-14) Blood Urea Nitrogen 23 mg/dL (8-26) Creatinine 1.2 mg/dL (0.7-1.3) Estimated GFR (Cockcroft-Gault) 57.4 Glucose Level 100 mg/dL (70-99) Calcium Level 9.2 mg/dL (8.5-10.1) Urine Collection Type U cath Urine Color Red Urine Clarity Turbid Urine pH 6.0 Urine Specific [place] 1.020 Urine Protein 100 mg/dL (NEG-TRACE) Urine Glucose (UA) Negative mg/dL (NEG) Urine Ketones (Stick) Trace mg/dL (NEG) Urine Blood Large (NEG) Urine Nitrite Positive (NEG) Urine Bilirubin Moderate (NEG) Urine Urobilinogen Dipstick 1.0 mg/dL (0.2 mg/dL) Urine Leukocyte Esterase Large (NEG) Urine RBC Tntc /HPF (0-2) Urine WBC 20-40 /HPF (0-4) Urine Squamous Epithelial Cells Occ /LPF Urine Bacteria Many /HPF (0-FEW) Urine Mucus Mod /LPF Laboratory Tests Test 08/16/18 19:30 08/16/18 20:56 White Blood Count 7.7 x10^3/uL (4.0-11.0) Red Blood Count 4.32 x10^6/uL (4.30-5.70) Hemoglobin 13.8 g/dL (13.0-17.5) Hematocrit 42.5 % (39.0-53.0) Mean Corpuscular Volume 98 fL (79-100) Mean Corpuscular Hemoglobin 32 pg (25-35) Mean Corpuscular Hemoglobin Concent 32 g/dL (31-37) Red Cell Distribution Width 14.4 % (11.5-14.5) Platelet Count 185 x10^3/uL (140-400) Neutrophils (%) (Auto) 68 % (31-73) Lymphocytes (%) (Auto) 22 % (24-48) Monocytes (%) (Auto) 7 % (0-9) Eosinophils (%) (Auto) 3 % (0-3) Basophils (%) (Auto) 1 % (0-3) Neutrophils # (Auto) 5.2 x10^3uL (1.8-7.7) Lymphocytes # (Auto) 1.7 x10^3/uL (1.0-4.8) Monocytes # (Auto) 0.5 x10^3/uL (0.0-1.1) Eosinophils # (Auto) 0.2 x10^3/uL (0.0-0.7) Basophils # (Auto) 0.0 x10^3/uL (0.0-0.2) Prothrombin Time 13.3 SEC (11.7-14.0) Prothromb Time International Ratio 1.0 (0.8-1.1) Activated Partial Thromboplast Time 32 SEC (24-38) Sodium Level 141 mmol/L (136-145) Potassium Level 3.9 mmol/L (3.5-5.1) Chloride Level 102 mmol/L (98-107) Carbon Dioxide Level 31 mmol/L (21-32) Anion Gap 8 (6-14) Blood Urea Nitrogen 23 mg/dL (8-26) Creatinine 1.2 mg/dL (0.7-1.3) Estimated GFR (Cockcroft-Gault) 57.4 Glucose Level 100 mg/dL (70-99) Calcium Level 9.2 mg/dL (8.5-10.1) Urine Collection Type U cath Urine Color Red Urine Clarity Turbid Urine pH 6.0 Urine Specific [place] 1.020 Urine Protein 100 mg/dL (NEG-TRACE) Urine Glucose (UA) Negative mg/dL (NEG) Urine Ketones (Stick) Trace mg/dL (NEG) Urine Blood Large (NEG) Urine Nitrite Positive (NEG) Urine Bilirubin Moderate (NEG) Urine Urobilinogen Dipstick 1.0 mg/dL (0.2 mg/dL) Urine Leukocyte Esterase Large (NEG) Urine RBC Tntc /HPF (0-2) Urine WBC 20-40 /HPF (0-4) Urine Squamous Epithelial Cells Occ /LPF Urine Bacteria Many /HPF (0-FEW) Urine Mucus Mod /LPF Images Images CT abdomen and pelvis without contrast. HISTORY: Hematuria CT scan the abdomen pelvis was done without contrast. There is mild respiratory motion artifact. 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 There is mild scarring or atelectasis in the right lower lobe. Thoracic aorta is mildly dilated measuring 3.68 cm. A liver lesion is not identified. There is either artifact or small gallstones in the gallbladder in the posterior gallbladder. There are granulomatous calcifications in the spleen. Adrenal glands are normal. Patient's had a previous aortic aneurysm surgery. There is an aneurysm of the aorta above the previous surgery at the level the renal arteries and just below the renal arteries the aorta measures 3.7 x 3.9 cm. There is no renal mass or hydronephrosis. There is no bowel obstruction. There is a anterior abdominal wall hernia in the upper abdomen above the umbilicus. Appendix is normal. Prostate is enlarged. There is thickening of the bladder wall. Bladder is mildly distended. There is a bubble of air in the bladder possible infection or instrumentation. I do not see evidence of a diverticulitis or significant diverticulosis. 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 There is degenerative change in the lumbar spine without a fracture. IMPRESSION: 1. Abdominal aortic aneurysm. 2. Some limitation from respiratory motion artifact. 3. Artifact versus small gallstones the gallbladder. 4. 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 5. Enlarged prostate. 6. Distended bladder with thickening of the bladder wall and mild inflammation surrounding the bladder, possible infection. Assessment/Plan Assessment/Plan 88-year-old male admitted with urinary retention and blood clots, this is resolving. He was noted on CT scan to have an asymptomatic abdominal aortic aneurysm measuring 3.7 x 3.9 cm just below the renal arteries and just above his aortic graft. Would not recommend any surgical intervention at this time. Recommend to continue to monitor the aneurysm for enlargement and to report any new symptoms of abdominal pain or back pain. Follow up in 6 months with ultrasound and office visit. Recommend daily aspirin if ok with Urology. Discussed history and examination with Dr. Brown, she will see patient and make additional recommendations as needed. The patient was seen and examined on 08/17/2018, agree with Marin Agudelo note. 88 year old male admitted with urinary retention has a history of open AAA repair several years ago. The aorto just above the repair and below the renal arteries is aneurysmal at 3.9cm. The descending thoracic aorta is slightly enlarged at 3.7cm. No signs of rupture and the patient is asymptomatic with no abdominal or back pain. No surgical intervention is needed at this size. Recommend an aortic duplex scan and office visit in 6 months. MARIN Rehman MD, APRN August 17, 2018 14:54 CANDI BROWN MD August 17, 2018 15:30
[2018-08-17 15:00] VITALS: BP 110/78
--- NOTE | 2018-08-17 16:41 | PDOC3 ---
Discharge Summary Date of Admission: August 16, 2018 Date of Discharge: August 17, 2018 Follow-Up: 3-5 days Admitting Diagnosis comment: discharge dx Assessment/Britton Assessment 1. Distended bladder with thickening of the bladder wall and mild inflammation surrounding the bladder, possible infection. 2 . Abdominal aortic aneurysm. aneurysm of the aorta above the previous surgery at the level the renal arteries and just below the renal arteries the aorta measures 3.7 x 3.9 cm. 3. Some limitation from respiratory motion artifact. 4. Artifact versus small gallstones the gallbladder. 5. 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 6. Enlarged prostate. 7. uti 8. BRIT 9. copd without exac /Plan 1.at home cath QID. He has been offered surgery for urinary retention maintain Simpson catheter for now. Hematuria appears to have resolved 2.iv antibiotics, emperic. 3. UROLOGY CONSULT 4. duonebs qid prn SOA 5. VASCULAR SURGERY consult reviewed 6. dvt prophylaxis 7. AM LABS 53 MIN PT EXAM, CHART REVIEW, > 50% OF TIME WITH EXAM, CHART REVIEW, PT CARE COORDINATION Patient states he has not had any recent abdominal pain or back pain. He is uncertain the last time he followed up with Dr. Abdalla with relationship to his aneurysm. He denies any symptoms of claudication or stroke like symptoms. 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 FINAL DIAGNOSIS Problems Medical Problems: (1) Urinary tract infection Status: Acute Brief Hospital Course Mr. Stewart is a 88 old [sex] who presented with [uti, urine retention ] CONDITION AT DISCHARGE: Improved Discharge Medications Current Medications Albuterol/ Ipratropium (Duoneb) 3 ml 1X ONCE NEB Last administered on 08/16/18at 21:48; Start 08/16/18 at 21:45; Stop 08/16/18 at 21:46; Status DC Ceftriaxone Sodium (Rocephin) 1 gm 1X ONCE IVP Last administered on 08/16/18at 23:38; Start 08/16/18 at 23:15; Stop 08/16/18 at 23:16; Status DC Sodium Chloride 1,000 ml @ 1,000 mls/hr 1X ONCE IV Last administered on 08/16/18at 23:38; Start 08/16/18 at 23:15; Stop 08/17/18 at 00:14; Status DC Acetaminophen (Tylenol) 650 mg PRN Q6HRS PRN PO headache; Start 08/17/18 at 02:00 Albuterol/ Ipratropium (Duoneb) 3 ml RTQID NEB ; Start 08/17/18 at 08:00; Stop 08/17/18 at 13:25; Status DC Ceftriaxone Sodium (Rocephin) 1 gm Q24H IVP ; Start 08/17/18 at 21:00 Albuterol/ Ipratropium (Duoneb) 3 ml RTQID NEB Last administered on 08/17/18at 15:45; Start 08/17/18 at 16:00 Lactobacillus Rhamnosus (Culturelle) 1 cap BID PO ; Start 08/17/18 at 21:00 Active Scripts Active Cipro (Ciprofloxacin Hcl) 500 Mg Tablet 1 Tab PO BID 10 Days Reported No Known Medications Prior To Admisstion (Info) Each 1 Each MC 1X No Known Medications Prior To Admisstion (Info) Each 1 Each Vital Signs Vital Signs Date Time Temp Pulse Resp B/P (MAP) Pulse Ox O2 Delivery O2 Flow Rate FiO2 08/17/18 15:46 Room Air 08/17/18 15:00 98.2 51 18 110/78 (89) 95 98.2 08/17/18 07:20 2.0 Labs Laboratory Tests Test 08/16/18 19:30 08/16/18 20:56 White Blood Count 7.7 x10^3/uL (4.0-11.0) Red Blood Count 4.32 x10^6/uL (4.30-5.70) Hemoglobin 13.8 g/dL (13.0-17.5) Hematocrit 42.5 % (39.0-53.0) Mean Corpuscular Volume 98 fL (79-100) Mean Corpuscular Hemoglobin 32 pg (25-35) Mean Corpuscular Hemoglobin Concent 32 g/dL (31-37) Red Cell Distribution Width 14.4 % (11.5-14.5) Platelet Count 185 x10^3/uL (140-400) Neutrophils (%) (Auto) 68 % (31-73) Lymphocytes (%) (Auto) 22 % (24-48) Monocytes (%) (Auto) 7 % (0-9) Eosinophils (%) (Auto) 3 % (0-3) Basophils (%) (Auto) 1 % (0-3) Neutrophils # (Auto) 5.2 x10^3uL (1.8-7.7) Lymphocytes # (Auto) 1.7 x10^3/uL (1.0-4.8) Monocytes # (Auto) 0.5 x10^3/uL (0.0-1.1) Eosinophils # (Auto) 0.2 x10^3/uL (0.0-0.7) Basophils # (Auto) 0.0 x10^3/uL (0.0-0.2) Prothrombin Time 13.3 SEC (11.7-14.0) Prothromb Time International Ratio 1.0 (0.8-1.1) Activated Partial Thromboplast Time 32 SEC (24-38) Sodium Level 141 mmol/L (136-145) Potassium Level 3.9 mmol/L (3.5-5.1) Chloride Level 102 mmol/L (98-107) Carbon Dioxide Level 31 mmol/L (21-32) Anion Gap 8 (6-14) Blood Urea Nitrogen 23 mg/dL (8-26) Creatinine 1.2 mg/dL (0.7-1.3) Estimated GFR (Cockcroft-Gault) 57.4 Glucose Level 100 mg/dL (70-99) Calcium Level 9.2 mg/dL (8.5-10.1) Urine Collection Type U cath Urine Color Red Urine Clarity Turbid Urine pH 6.0 Urine Specific [place] 1.020 Urine Protein 100 mg/dL (NEG-TRACE) Urine Glucose (UA) Negative mg/dL (NEG) Urine Ketones (Stick) Trace mg/dL (NEG) Urine Blood Large (NEG) Urine Nitrite Positive (NEG) Urine Bilirubin Moderate (NEG) Urine Urobilinogen Dipstick 1.0 mg/dL (0.2 mg/dL) Urine Leukocyte Esterase Large (NEG) Urine RBC Tntc /HPF (0-2) Urine WBC 20-40 /HPF (0-4) Urine Squamous Epithelial Cells Occ /LPF Urine Bacteria Many /HPF (0-FEW) Urine Mucus Mod /LPF Laboratory Tests Test 08/16/18 19:30 08/16/18 20:56 White Blood Count 7.7 x10^3/uL (4.0-11.0) Red Blood Count 4.32 x10^6/uL (4.30-5.70) Hemoglobin 13.8 g/dL (13.0-17.5) Hematocrit 42.5 % (39.0-53.0) Mean Corpuscular Volume 98 fL (79-100) Mean Corpuscular Hemoglobin 32 pg (25-35) Mean Corpuscular Hemoglobin Concent 32 g/dL (31-37) Red Cell Distribution Width 14.4 % (11.5-14.5) Platelet Count 185 x10^3/uL (140-400) Neutrophils (%) (Auto) 68 % (31-73) Lymphocytes (%) (Auto) 22 % (24-48) Monocytes (%) (Auto) 7 % (0-9) Eosinophils (%) (Auto) 3 % (0-3) Basophils (%) (Auto) 1 % (0-3) Neutrophils # (Auto) 5.2 x10^3uL (1.8-7.7) Lymphocytes # (Auto) 1.7 x10^3/uL (1.0-4.8) Monocytes # (Auto) 0.5 x10^3/uL (0.0-1.1) Eosinophils # (Auto) 0.2 x10^3/uL (0.0-0.7) Basophils # (Auto) 0.0 x10^3/uL (0.0-0.2) Prothrombin Time 13.3 SEC (11.7-14.0) Prothromb Time International Ratio 1.0 (0.8-1.1) Activated Partial Thromboplast Time 32 SEC (24-38) Sodium Level 141 mmol/L (136-145) Potassium Level 3.9 mmol/L (3.5-5.1) Chloride Level 102 mmol/L (98-107) Carbon Dioxide Level 31 mmol/L (21-32) Anion Gap 8 (6-14) Blood Urea Nitrogen 23 mg/dL (8-26) Creatinine 1.2 mg/dL (0.7-1.3) Estimated GFR (Cockcroft-Gault) 57.4 Glucose Level 100 mg/dL (70-99) Calcium Level 9.2 mg/dL (8.5-10.1) Urine Collection Type U cath Urine Color Red Urine Clarity Turbid Urine pH 6.0 Urine Specific [place] 1.020 Urine Protein 100 mg/dL (NEG-TRACE) Urine Glucose (UA) Negative mg/dL (NEG) Urine Ketones (Stick) Trace mg/dL (NEG) Urine Blood Large (NEG) Urine Nitrite Positive (NEG) Urine Bilirubin Moderate (NEG) Urine Urobilinogen Dipstick 1.0 mg/dL (0.2 mg/dL) Urine Leukocyte Esterase Large (NEG) Urine RBC Tntc /HPF (0-2) Urine WBC 20-40 /HPF (0-4) Urine Squamous Epithelial Cells Occ /LPF Urine Bacteria Many /HPF (0-FEW) Urine Mucus Mod /LPF Allergies Allergies Coded Allergies Type Severity Reaction Last Updated Verified No Known Drug Allergies 05/17/15 No Disposition/Orders: D/C to Home Patient Instructions d/c planning 34 min CLAUDE RODRIGUEZ MD August 17, 2018 16:41
--- NOTE | 2018-08-17 16:46 | DISCH ---
DISCHARGE INSTRUCTIONS Condition on Discharge Condition on Discharge: Stable Activity After Discharge Activity Instructions for Disc: Activity as tolerated Lifting Instructions after Dis: No heavy lifting, No pulling or pushing Exercise Instruction after Dis: Walk 10 min, 3 x per day Driving Instructions after Dis: Do not drive today Diet after Discharge Diet after Discharge: Cardiac Checks after Discharge Checks after discharge: Check blood press - daily Contacting the DR. after DC Call your doctor for: If your condition worsens (see urology next week, pcp next week) CLAUDE RODRIGUEZ MD August 17, 2018 16:46
--- NOTE | 2018-08-17 17:42 | NUR ---
Cefdinir 300mg PO BID #[id number] called to A[facility]. [phone]
--- NOTE | 2018-08-17 18:29 | NUR ---
Pt. discharged to home with roberts leg bag attached. Verbalized understanding of discharge instructions.
[2018-08-17] MEDS ORDERED: LACTOBACILLUS RHAMNOSUS GG 1 CAPSULE. PO SCH (21:00)
[2018-08-17] MEDS ORDERED: cefTRIAXone IV Push 1 GM VIAL. IVP SCH (21:00)
== END 2018-08-17 18:18 | disposition home or self-care (01) | DRG 690 ==
LOC: ER 19:15 → 4 NORTH 23:13
PROVIDERS: ADMIT Internal Medicine; ATTEND Internal Medicine
DX: N30.91 Cystitis, unspecified with hematuria (principal); N17.9 Acute kidney failure, unspecified; N40.1 Benign prostatic hyperplasia with lower urinary tract symptoms; R33.8 Other retention of urine; F17.210 Nicotine dependence, cigarettes, uncomplicated; I10 Essential (primary) hypertension; J44.9 Chronic obstructive pulmonary disease, unspecified; K43.9 Ventral hernia without obstruction or gangrene; K80.20 Calculus of gallbladder without cholecystitis without obstruction; M43.00 Spondylolysis, site unspecified; N40.0 Benign prostatic hyperplasia without lower urinary tract symptoms; R31.0 Gross hematuria; Z82.49 Family history of ischemic heart disease and other diseases of the circulatory system; Z86.79 Personal history of other diseases of the circulatory system; Z87.440 Personal history of urinary (tract) infections
CPT/HCPCS: 36415; 51702; 74176; 80048; 81001; 85025; 85610; 85730; 87086; 87186; 94640; 96361; 96374; 99406; J0696; J7030; J7620; 99285-25

== ENCOUNTER 2019-07-24 14:36 | Emergency (ER) | payer MEDICARE, BC ==
[~2019-07-24] VITALS: Ht 177.8 cm; Wt 80.0 kg
[2019-07-24] MEDS ORDERED: IV NORMAL SALINE 500ML BAG 500 ML IV ONE (14:45)
[2019-07-24 15:30] VITALS: BP 200/92
[2019-07-24 15:31] LABS: BASO % 0 % (0-3); EOS # 0.2 x10^3/uL (0.0-0.7); EOS % 2 % (0-3); HEMATOCRIT 42.3 % (39.0-53.0); HEMOGLOBIN 13.9 g/dL (13.0-17.5); LYMPH # 1.2 x10^3/uL (1.0-4.8); LYMPH % 14 % (24-48); MEAN CORPUSCULAR HEMOGLOBIN 32 pg (25-35); MEAN CORPUSCULAR HGB CONC 33 g/dL (31-37); MEAN CORPUSCULAR VOLUME 97 fL (79-100); MONO # 0.6 x10^3/uL (0.0-1.1); MONO % 7 % (0-9); NEUT # 6.8 x10^3/uL (1.8-7.7); NEUT % 77 % (31-73); PLATELET COUNT 175 x10^3/uL (140-400); RED BLOOD COUNT 4.34 x10^6/uL (4.30-5.70); RED CELL DISTRIBUTION WIDTH 14.7 % (11.5-14.5); WHITE BLOOD COUNT 8.8 x10^3/uL (4.0-11.0)
[2019-07-24 15:39] LABS: PROTHROMBIN TIME PATIENT 13.7 SEC (11.7-14.0)
[2019-07-24 15:47] LABS: GFR 70.7; POTASSIUM 4.1 mmol/L (3.5-5.1)
[2019-07-24 15:48] LABS: BILIRUBIN,URINE NEGATIVE (NEG); CLARITY,URINE CLOUDY; COLOR,URINE AMBER; NITRITE,URINE NEGATIVE (NEG); PROTEIN,URINE 30 mg/dL (NEG-TRACE); UROBILINOGEN,URINE 0.2 mg/dL (0.2 mg/dL)
[2019-07-24 15:52] LABS: ALBUMIN 3.6 g/dL (3.4-5.0); TOTAL BILIRUBIN 0.6 mg/dL (0.2-1.0); TOTAL PROTEIN 7.3 g/dL (6.4-8.2)
[2019-07-24] MEDS ORDERED: LEVO500T59 PO (15:53)
[2019-07-24] MEDS ORDERED: TAMS0.4C97 PO (15:53)
--- NOTE | 2019-07-24 15:54 | PHYS DOC ---
Past Medical History Past Medical History: UTI Additional Past Medical Histor: bph, Past Surgical History: Other Additional Past Surgical Histo: aaa repair Smoking Status: Current Every Day Smoker Alcohol Use: None Drug Use: None General Adult EDM: Chief Complaint: BLOOD IN URINE HPI: HPI: Patient is an 89-year-old male with a history of BPH presents stating he is having blood in his urine and was unable to self catheterize this morning. He states it is been approximately 10 hours since he last urinated. He denies any nausea or vomiting. Denies fever chills or sweats. He states this does happen occasionally. [] Review of Systems: Review of Systems: Constitutional: Denies fever or chills. [] Eyes: Denies change in visual acuity. [] HENT: Denies nasal congestion or sore throat. [] Respiratory: Denies cough or shortness of breath. [] Cardiovascular: Denies chest pain or edema. [] GI: Denies abdominal pain, nausea, vomiting, bloody stools or diarrhea. [] -:- Per HPI. [] Musculoskeletal: Denies back pain or joint pain. [] Integument: Denies rash. [] Neurologic: Denies headache, focal weakness or sensory changes. [] Endocrine: Denies polyuria or polydipsia. [] Lymphatic: Denies swollen glands. [] Psychiatric: Denies depression or anxiety. [] Heart Score: Risk Factors: Risk Factors: DM, Current or recent (<one month) smoker, HTN, HLP, family history of CAD, obesity. Risk Scores: Score 0 - 3: 2.5% MACE over next 6 weeks - Discharge Home Score 4 - 6: 20.3% MACE over next 6 weeks - Admit for Clinical Observation Score 7 - 10: 72.7% MACE over next 6 weeks - Early Invasive Strategies Current Medications: Current Medications Medications (Trade) Dose Ordered Sig/Sharmila Start Time Stop Time Status Last Admin Dose Admin Sodium Chloride 500 ml @ 500 mls/hr 1X ONCE 07/24/19 14:45 07/24/19 15:44 DC 07/24/19 15:28 500 MLS/HR Allergies: Allergies: Allergies Coded Allergies Type Severity Reaction Last Updated Verified No Known Drug Allergies 05/17/15 No Physical Exam: PE: Constitutional: Well developed, well nourished, moderate distress, non-toxic appearance. [] HENT: Normocephalic, atraumatic, bilateral external ears normal, oropharynx moist, no oral exudates, nose normal. [] Eyes: PERRLA, EOMI, conjunctiva normal, no discharge. [] Neck: Normal range of motion, no tenderness, supple, no stridor. [] Cardiovascular:Heart rate regular rhythm, no murmur [] Lungs & Thorax: Bilateral breath sounds clear to auscultation [] Abdomen: Suprapubic tender to palp fullness in the bladder appreciated [] Skin: Warm, dry, no erythema, no rash. [] Back: No tenderness, no CVA tenderness. [] Extremities: No tenderness, no cyanosis, no clubbing, ROM intact, no edema. [] Neurologic: Alert and oriented X 3, normal motor function, normal sensory function, no focal deficits noted. [] Psychologic: Affect normal, judgement normal, mood normal. [] Current Patient Data: Labs: Laboratory Tests Test 07/24/19 15:20 White Blood Count 8.8 x10^3/uL (4.0-11.0) Red Blood Count 4.34 x10^6/uL (4.30-5.70) Hemoglobin 13.9 g/dL (13.0-17.5) Hematocrit 42.3 % (39.0-53.0) Mean Corpuscular Volume 97 fL (79-100) Mean Corpuscular Hemoglobin 32 pg (25-35) Mean Corpuscular Hemoglobin Concent 33 g/dL (31-37) Red Cell Distribution Width 14.7 % (11.5-14.5) H Platelet Count 175 x10^3/uL (140-400) Neutrophils (%) (Auto) 77 % (31-73) H Lymphocytes (%) (Auto) 14 % (24-48) L Monocytes (%) (Auto) 7 % (0-9) Eosinophils (%) (Auto) 2 % (0-3) Basophils (%) (Auto) 0 % (0-3) Neutrophils # (Auto) 6.8 x10^3/uL (1.8-7.7) Lymphocytes # (Auto) 1.2 x10^3/uL (1.0-4.8) Monocytes # (Auto) 0.6 x10^3/uL (0.0-1.1) Eosinophils # (Auto) 0.2 x10^3/uL (0.0-0.7) Basophils # (Auto) 0.0 x10^3/uL (0.0-0.2) Prothrombin Time 13.7 SEC (11.7-14.0) Prothrombin Time INR 1.1 (0.8-1.1) Laboratory Tests 07/24/19 15:20 EKG: EKG: [] Radiology/Procedures: Radiology/Procedures: [] Course & Med Decision Making: Course & Med Decision Making Pertinent Labs and Imaging studies reviewed. (See chart for details) [ED course: Evaluation reveals an 89-year-old male with acute urinary retention a coud catheter was placed with immediate relief of symptoms and a blood-tinged urine] Manuela Disclaimer: Manuela Disclaimer: This electronic medical record was generated, in whole or in part, using a voice recognition dictation system. Departure Departure Impression: Primary Impression: Urine retention Additional Impression: UTI (urinary tract infection) Qualified Codes: T83.511A - Infection and inflammatory reaction due to indwelling urethral catheter, initial encounter; N39.0 - Urinary tract infect ion, site not specified Disposition: HOME, SELF-CARE Condition: IMPROVED Referrals: NO PCP (PCP) Patient Instructions: Catheter-Associated Urinary Tract Infection FAQs - WARD, Indwelling Urinary Catheter Care-Brief, Urinary Retention, Acute, Male Additional Instructions: Follow with your primary care physician in 2 to 3 days for Simpson catheter evaluation and plan for removal Scripts Levofloxacin (LEVAQUIN) 500 Mg Tablet 1 TAB PO DAILY for urinary tract infection, #10 TAB Prov: JEFF DURANT DO 07/24/19 Tamsulosin Hcl (FLOMAX) 0.4 Mg Cap.er.24h 1 CAP PO DAILY, #30 CAP 11 Refills Prov: JEFF DURANT DO 07/24/19 JEFF DURANT DO Jul 24, 2019 15:53
[2019-07-24 16:01] LABS: RBC,URINE >40 /HPF (0-2)
[2019-07-24 16:03] LABS: AMORPHOUS SEDIMENT,UR PRESENT /HPF; BACTERIA,URINE MODERATE /HPF (0-FEW)
== END 2019-07-24 16:19 | disposition home or self-care (01) ==
LOC: ER 14:36
DX: T83.511A Infection and inflammatory reaction due to indwelling urethral catheter, initial encounter (principal); N39.0 Urinary tract infection, site not specified; N40.1 Benign prostatic hyperplasia with lower urinary tract symptoms; R33.8 Other retention of urine; F17.200 Nicotine dependence, unspecified, uncomplicated
CPT/HCPCS: 36415; 80053; 81001; 85025; 85610; 87086; 99284; J7040

== ENCOUNTER → 2020-07-18 | Outpatient (CLI) | payer MEDICARE, BC ==
[2020-07-07 15:00] VITALS: BP 167/68
[~2020-07-18] MED LIST changes: +AMOX1TAB58 PO; +Diclofenac Sodium TP; +IPRA3AMP29 NEB; +LACT1CAP19 PO; +LEVO500T59 PO; +MINE454C9 TP; +TAMS0.4C97 PO
--- NOTE | 2020-07-18 11:16 | RAD ---
EXAM: CT HEAD WITHOUT CONTRAST. HISTORY: Intracranial hemorrhage. TECHNIQUE: Computed tomography of the head was performed without intravenous contrast. One or more of the following individualized dose reduction techniques were utilized for this examination: 1. Automated exposure control. 2. Adjustment of the mA and/or kV according to patient size. 3. Use of iterative reconstruction technique. COMPARISON: 07/05/2020. FINDINGS: There has been interval evolution of the left cerebellar intraparenchymal hematoma, which h as decreased in size and is now mostly isoattenuating. There is mild residual surrounding vasogenic e nasreen. The fourth ventricle remains midline. A stable small left frontal extra-axial collection may represent prominence of the subarachnoid space or a small low-density subdural collection. Measures 4 mm in thickness. There is no significant midl ine shift. Hypoattenuation within the white matter indicates moderate chronic microangiopathic change. The ventr icles are normal in size and position for patient age. The visualized paranasal sinuses appear clear. There is a chronic depressed fracture of the left lami na papyracea. The temporal bones are unremarkable. The calvarium reveals no suspicious lesions. There are atherosclerotic calcifications of the internal carotid arteries. IMPRESSION: 1. Expected interval evolution of a subacute left cerebellar intraparenchymal hematoma. 2. 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 3. Moderate chronic microangiopathic white matter change. Electronically signed by: Lilian Larson MD (07/18/2020 11:13 AM) [id number]
== END ==
LOC: CT 10:52
PROVIDERS: ATTEND Internal Medicine
DX: I61.9 Nontraumatic intracerebral hemorrhage, unspecified (principal)
CPT/HCPCS: 70450